=== PATIENT | female | born 1950 | race Caucasian/White ===

== ENCOUNTER → 2021-10-04 | Outpatient (CLI) | payer MEDICARE, OTHER, SELFPAY ==
--- NOTE | 2021-10-04 13:58 | US_ITS ---
EXAM: US RETROPERITONEAL LIMITED, RENAL CLINICAL INDICATION: RENAL INSUFFICIENCY TECHNIQUE: Limited grayscale and color Doppler sonographic evaluation of the retroperitoneum was performed. This report was created using [employer] report generation technology. COMPARISON: None. FINDINGS: RIGHT KIDNEY: Unremarkable. No hydronephrosis. No shadowing calculus. No perinephric collection is demonstrated. The right kidney measures 10.6 cm in length. LEFT KIDNEY: Left kidney 10.2 1. No hydronephrosis. No shadowing calculus. No perinephric collection is demonstrated. BLADDER: Bladder post void residual 10 cc. US/Kidney and Bladder IMPRESSION: No acute findings in the retroperitoneum. Electronically Signed: Hemal Pacheco MD at 0:44 EDT ,
== END | disposition home or self-care (01) ==
LOC: US 13:55
PROVIDERS: Visit Provider Urology
DX: N89.9 Noninflammatory disorder of vagina, unspecified (principal)
CPT/HCPCS: 76770

== ENCOUNTER → 2022-11-15 | Outpatient (CLI) | payer MEDICARE, OTHER, SELFPAY ==
[2022-11-15 19:09] LABS: Microalbumin,Random Urine < 5.0 mg/L (NO RANGE EST.)
== END | disposition home or self-care (01) ==
LOC: POLAB3 14:22
PROVIDERS: Visit Provider Internal Medicine Nephrology
DX: N18.32 Chronic kidney disease, stage 3b (principal)
CPT/HCPCS: 82043; 82570

== ENCOUNTER → 2023-03-19 | Outpatient (CLI) | payer MEDICARE, OTHER, SELFPAY ==
[2023-03-19 11:20] LABS: BUN 25 mg/dL (7-18); BUN/Creat Ratio 19.2 RATIO (10-20); Calcium,Total 9.5 mg/dL (8.5-10.1); Chloride 108 mmol/L (98-107); EST Glomerular Filtration Rate 43 mL/min (>60); Est Glom Filt Rate - Afr Amer 51 mL/min (>60); Glucose 123 mg/dL (74-106); Phosphorus 2.6 mg/dL (2.5-4.9); Potassium 3.8 mmol/L (3.5-5.1); Sodium Level 140 mmol/L (136-145)
[2023-03-19 11:28] LABS: PTHIN 26.5 pg/mL (18.4-80.1)
== END | disposition home or self-care (01) ==
LOC: POLAB3 10:41
PROVIDERS: Visit Provider Internal Medicine Nephrology
DX: N18.32 Chronic kidney disease, stage 3b (principal)
CPT/HCPCS: 36415; 80069; 83970

== ENCOUNTER → 2023-09-12 | Outpatient (CLI) | payer MEDICARE, OTHER, SELFPAY ==
[2023-09-12 09:17] LABS: Hematocrit 43.5 % (37-47); Hemoglobin 14.2 g/dL (12.0-15.0); Mean Corp Hgb Conc 32.6 g/dL (32-36); Mean Corpuscular Hgb 29.5 pg (27.0-32.0); Mean Corpuscular Volume 90.2 fL (81-99); Mean Platelet Vol. 10.5 fl (6.2-12.0); Platelet Count 193 K/mm3 (150-450); RBC Distribution Width CV 12.2 % (11.6-14.6); RBC Distribution Width SD 40.1 fl (35.1-43.9); Red Blood Count 4.82 M/mm3 (4.2-5.4); White Blood Count 4.7 K/mm3 (4.4-11.0)
[2023-09-12 09:37] LABS: PTHIN 32.5 pg/mL (18.4-80.1)
[2023-09-12 09:38] LABS: BUN 28 mg/dL (7-18); BUN/Creat Ratio 20.6 RATIO (10-20); Calcium,Total 9.6 mg/dL (8.5-10.1); Chloride 106 mmol/L (98-107); Creatinine, Serum 1.36 mg/dL (0.55-1.02); EST Glomerular Filtration Rate 40 mL/min (>60); Est Glom Filt Rate - Afr Amer 49 mL/min (>60); Glucose 121 mg/dL (74-106); Phosphorus 2.6 mg/dL (2.5-4.9); Potassium 4.2 mmol/L (3.5-5.1); Sodium Level 136 mmol/L (136-145)
== END | disposition home or self-care (01) ==
LOC: LAB 08:34
PROVIDERS: PCP Family Medicine; Referring Provider Internal Medicine Nephrology; Visit Provider Internal Medicine Nephrology
DX: N18.32 Chronic kidney disease, stage 3b (principal)
CPT/HCPCS: 36415; 80069; 83970; 85027

== ENCOUNTER → 2023-09-25 | Outpatient (CLI) | payer MEDICARE, OTHER, SELFPAY ==
[2023-09-25 10:40] LABS: Absolute Lymphocyte Count 1.26 X10^3/uL (0.83-4.51); Absolute Neutrophil Count 2.5 X10^3/uL (2.0-7.7); Basophil# 0.07 X10^3/uL; Basophil% 1.5 % (0-1); Eosinophil# 0.26 X10^3/uL; Eosinophils% 5.7 % (0-5); Hematocrit 43.1 % (37-47); Hemoglobin 14.2 g/dL (12.0-15.0); Lymphocyte # 1.26 X10^3/ul (0.83-4.51); Lymphocyte % 27.8 % (19-41); Mean Corp Hgb Conc 32.9 g/dL (32-36); Mean Corpuscular Hgb 29.7 pg (27.0-32.0); Mean Corpuscular Volume 90.2 fL (81-99); Mean Platelet Vol. 10.5 fl (6.2-12.0); Monocyte# 0.41 X10^3/uL; Monocyte% 9.1 % (0-10); NRBC Flagged by Analyzer 0 % (0-5); Neutrophil # 2.51 X10^3/uL (2.7-7.7); Neutrophil % 55.5 % (47-70); Platelet Count 193 K/mm3 (150-450); RBC Distribution Width CV 12.2 % (11.6-14.6); RBC Distribution Width SD 40.3 fl (35.1-43.9); Red Blood Count 4.78 M/mm3 (4.2-5.4); White Blood Count 4.5 K/mm3 (4.4-11.0)
[2023-09-25 11:19] LABS: Hemoglobin A1c 6.5 % (3.8-5.6)
[2023-09-25 11:36] LABS: ALB/GLOB Ratio 1.3 RATIO (0.9-2.4); AST(SGOT) 32 U/L (15-37); Alanine Aminotransfer ALT/SGPT 50 U/L (13-56); Albumin, Serum 4.2 g/dL (3.2-5.0); Alkaline Phosphatase 66 U/L (45-117); Anion Gap 7 (5-15); BUN 33 mg/dL (7-18); BUN/Creat Ratio 23.6 RATIO (10-20); Calcium,Total 9.7 mg/dL (8.5-10.1); Chloride 108 mmol/L (98-107); Cholesterol 184 mg/dL (200); EST Glomerular Filtration Rate 39 mL/min (>60); Est Glom Filt Rate - Afr Amer 47 mL/min (>60); Globulin 3.2 g/dL (2.2-4.2); Glucose 128 mg/dL (74-106); High Density Lipoprotein 52 mg/dL; Potassium 4.2 mmol/L (3.5-5.1); Protein, Total 7.4 g/dL (6.4-8.2); Sodium Level 139 mmol/L (136-145); Triglycerides 143 mg/dL; Very Low Density Lipoprotein 29 mg/dL (5-40)
[2023-09-25 15:34] LABS: Vitamin D,25 Hydroxy 36.4 ng/mL
== END | disposition home or self-care (01) ==
PROVIDERS: PCP Family Medicine; Referring Provider Family Medicine; Visit Provider Family Medicine
DX: E11.59 Type 2 diabetes mellitus with other circulatory complications (principal); E11.69 Type 2 diabetes mellitus with other specified complication; I10 Essential (primary) hypertension; E78.5 Hyperlipidemia, unspecified
CPT/HCPCS: 36415; 80053; 80061; 82306; 83036; 85025

== ENCOUNTER → 2024-09-10 | Outpatient (CLI) | payer MEDICARE, SELFPAY ==
[2024-09-10 11:17] LABS: Albumin, Serum 4.4 g/dL (3.4-4.8); Anion Gap 14 (5-15); BUN 33 mg/dL (4-19); BUN/Creat Ratio 26.2 RATIO (10-20); Carbon Dioxide 21.8 mmol/L (21.0-32.0); Chloride 103 mmol/L (98-108); Creatinine, Serum 1.27 mg/dL (0.70-1.20); EST Glomerular Filtration Rate 44 (>60); Glucose 103 mg/dL (70-99); Phosphorus 3.6 mg/dL (2.7-4.5); Potassium 4.6 mmol/L (3.3-5.1); Sodium Level 138 mmol/L (133-145)
[2024-09-10 11:21] LABS: Microalbumin,Random Urine < 12.0 mg/L (NO RANGE EST.); Microalbumin:Creatinine Ratio UNABLE TO CALCULATE mg/g CRE
== END | disposition home or self-care (01) ==
LOC: LAB 10:21
PROVIDERS: PCP Family Medicine; Referring Provider Internal Medicine Nephrology; Visit Provider Internal Medicine Nephrology
DX: E11.22 Type 2 diabetes mellitus with diabetic chronic kidney disease (principal); N18.32 Chronic kidney disease, stage 3b
CPT/HCPCS: 36415; 80069; 82043; 82570